=== PATIENT | female | born 1950 | race Caucasian/White ===

== ENCOUNTER 2019-05-13 07:28 | Emergency (ER) | payer OTHER ==
[~2019-05-13] VITALS: Ht 152.4 cm; Wt 68.0 kg
[2019-05-13 07:34] VITALS: BP_SYST 161
--- NOTE | 2019-05-13 07:51 | NUR ---
Patient to ER bed 4 to gown for evaluation. Side rails up. Report given to GLORIA Gonzales.
--- NOTE | 2019-05-13 08:06 | NUR ---
pt arrives from work after being biten on the left index finger by a dog. Area was cleansed with betadine and NS. Pt tolerated well.
--- NOTE | 2019-05-13 08:15 | NUR ---
ER at bedside examining patient.
[2019-05-13] MEDS ORDERED: LIDOCAINE 1%, 20 ML MDV 20 ML ONE (08:48)
--- NOTE | 2019-05-13 09:20 | NUR ---
pt getting an x-ray at the bedside.
--- NOTE | 2019-05-13 09:45 | NUR ---
pt getting rgith index finger getting sutured by Dr. Horan.
[2019-05-13] MEDS ORDERED: AMOXICILLIN/CLAVULANATE POTASSIUM 875 MG TABLET PO ONE (10:00)
[2019-05-13] MEDS ORDERED: KETOROLAC TROMETHAMINE 60 MG/2 ML VIAL IM ONE (10:00)
--- NOTE | 2019-05-13 10:29 | NUR ---
Patient given written and verbal discharge instructions and verbalizes understanding. ER MD discussed with patient the results and treatment provided. Patient in stable condition. ID arm band removed. Rx of Augmentin, Tylenol with Codiene given. Patient educated on pain management and to follow up with PMD. Pain Scale 3/10. Opportunity for questions provided and answered. Medication side effect fact sheet provided.
[2019-05-13 10:30] VITALS: BP_SYST 155
== END 2019-05-13 10:29 | disposition home or self-care (01) ==
LOC: SED 07:28
DX: S61.211A Laceration without foreign body of left index finger without damage to nail, initial encounter (principal); W54.0XXA Bitten by dog, initial encounter; Y93.89 Activity, other specified; Y92.513 Shop (commercial) as the place of occurrence of the external cause; Y99.8 Other external cause status
CPT/HCPCS: 12002; 73130; 96372; 99284; J1885; J2001

== ENCOUNTER 2019-05-15 10:27 | Emergency (ER) | payer OTHER ==
[~2019-05-15] VITALS: Ht 152.4 cm; Wt 68.0 kg
[2019-05-15 10:35] VITALS: BP_SYST 153
--- NOTE | 2019-05-15 10:37 | NUR ---
Patient to ER bed 07 to gown for evaluation. Side rails up.
--- NOTE | 2019-05-15 10:40 | NUR ---
Pt brought by self, A&Ox4, pt presents to ER for wound check on L index finger after sutures 2 days ago, pt afebrile, skin pink and warm, cap refill <3.
--- NOTE | 2019-05-15 10:42 | NUR ---
Dr Resendiz at bedside examining patient
[2019-05-15 11:30] LABS: BASOPHILS # (AUTO) 0.1 K/uL (0.0-0.2); EOSINOPHILS # (AUTO) 0.2 K/uL (0.0-0.4); EOSINOPHILS % (AUTO) 4.6 % (0.0-4.0); HEMATOCRIT 28.8 % (36-48); HEMOGLOBIN 9.2 g/dL (12.0-16.0); LYMPHOCYTES # (AUTO) 1.6 K/uL (1.0-5.5); LYMPHOCYTES % (AUTO) 30.4 % (20.5-51.5); MEAN CORPUSCULAR HEMOGLOBIN 27 pg (27-31); MEAN CORPUSCULAR HGB CONC 32 % (32-36); MEAN CORPUSCULAR VOLUME 83 fL (79.0-98.0); MONOCYTES # (AUTO) 0.5 K/uL (0.0-1.0); MONOCYTES % (AUTO) 8.7 % (1.7-9.3); NEUTROPHILS % (AUTO) 55.3 % (40.0-70.0); PLATELET COUNT (AUTO) 328 K/uL (130-430); RED BLOOD CELL COUNT(AUTO) 3.45 MIL/uL (4.2-6.2); RED CELL DISTRIBUTION WIDTH 19.4 % (9.0-15.0); WHITE BLOOD COUNT (AUTO) 5.4 K/uL (4.8-10.8)
[2019-05-15 11:44] LABS: ALANINE AMINOTRANSFERASE 24 U/L (12-78); ALBUMIN 3.4 g/dL (3.4-4.8); ANION GAP 5 (5-15); ASPARTATE AMINOTRANSFERASE 17 U/L (10-37); CALCIUM 8.2 mg/dL (8.4-11.0); CHLORIDE 105 mmol/L (98-107); CREATININE 0.65 mg/dL (0.55-1.30); GFR AFRICAN AMERICAN 117 mL/min (>90); GLUCOSE 89 mg/dL (70-99); SODIUM SERUM 138 mmol/L (136-145); TOTAL BILIRUBIN 0.1 mg/dL (0.0-1.0); UREA NITROGEN, BLOOD 14 mg/dL (8-21)
[2019-05-15 12:03] LABS: C-REACTIVE PROTEIN QUANT < 0.2 mg/dL (0-0.5)
[2019-05-15 12:22] VITALS: BP_SYST 142
--- NOTE | 2019-05-15 12:29 | NUR ---
Patient given written and verbal discharge instructions and verbalizes understanding. ER MD discussed with patient the results and treatment provided. Patient in stable condition. ID arm band removed. No Rx given. Patient educated on pain management and to follow up with PMD. Pain Scale 0/10 . Opportunity for questions provided and answered. Medication side effect fact sheet provided.
== END 2019-05-15 12:29 | disposition home or self-care (01) ==
LOC: SED 10:27
DX: S61.251D Open bite of left index finger without damage to nail, subsequent encounter (principal); L08.9 Local infection of the skin and subcutaneous tissue, unspecified; W54.0XXD Bitten by dog, subsequent encounter
CPT/HCPCS: 36415; 73140-TC; 80053; 83605; 85025; 86140; 99284